=== PATIENT | female | born 1955 | race Caucasian/White ===

== ENCOUNTER 2017-05-14 15:57 | Emergency (ER) | payer OTHER ==
[2017-05-14 16:09] VITALS: BMI 29.8
[2017-05-14] MEDS ORDERED: LIDOCAINE HCL 1%, 10 MG/ML (20ML VIAL) ONE (16:34)
--- NOTE | 2017-05-14 16:35 | PDOC ---
Attending Attestation - Resident Resident Name: FalconMeggan - ED Attending Attestation I have performed the following: I have examined & evaluated the patient, The case was reviewed & discussed with the resident, I agree w/resident's findings & plan, Exceptions are as noted - HPI HPI: 05/14/17 16:45 61yo female with L thumb laceration from cutting avacado - bleeding controlled. Dr. Lozoya spoke with Dr. Cordero from plastics to suture laceration. Dr. Cordero at the bedside. No blood thinners. Tetanus not utd. - Physicial Exam PE: 05/14/17 16:45 L thumb linear 1.5cm laceation - no active bleeding. - Medical Decision Making 05/14/17 16:29 I, Dr. Sowmya Swan, DO, attest that this document has been prepared under my direction and personally reviewed by me in its entirety. I further attest, that it accurately reflects all work, treatment, procedures and medical decision -making performed by me. 05/14/17 16:46 a/p: L finger laceration -sutured by Dr. Cordero -tetanus -follow up with DR. Cordero in 1 week for wound check
[2017-05-14] MEDS ORDERED: LIDOCAINE HCL 1%, 10 MG/ML (50 mL VIAL) SQ ONE (16:36)
[2017-05-14] MEDS ORDERED: DIPHTH,PERTUSS(ACELL),TET 0.5 ML DISP.SYRIN IM ONE (16:36)
--- NOTE | 2017-05-14 16:48 | PDOC ---
History of Present Illness - General Chief Complaint: Laceration Stated Complaint: LACERATION Time Seen by Provider: 05/14/17 16:21 History Source: Patient, Spouse Exam Limitations: No Limitations - History of Present Illness Initial Comments: This is a 61 yo [id number] female who presents about one hour s/p cutting her left thumb. She states that the cut the thumb with a knife while trying to slice an avocado. The wound bled a small amount on scene and her (who is a physician) put her thumb in a dressing. She is able to move the thumb, and denies any numbness, tingling, or weakness. She states that she is not up to date on her tetanus vaccination. She denies any other injuries as a result of this incident. Past History - Past Medical History Allergies/Adverse Reactions: Allergies Allergy/AdvReac Type Severity Reaction Status Date / Time No Known Allergies Allergy Verified 05/14/17 16:09 Home Medications: Ambulatory Orders Atorvastatin Ca [Lipitor] 10 mg PO HS 05/14/17 Levothyroxine [Synthroid -] 50 mcg PO DAILY 05/14/17 - Suicide/Smoking/Psychosocial Hx Smoking History: Never smoked Have you smoked in the past 12 months: No Information on smoking cessation initiated: No Hx Alcohol Use: No Drug/Substance Use Hx: No Substance Use Type: None Review of Systems - Review of Systems Constitutional: No: Chills, Fever, Unexplained wgt Loss HEENTM: No: Nose Congestion, Throat Pain Respiratory: No: Cough, Shortness of Breath Cardiac (ROS): No: Chest Pain, Palpitations ABD/GI: No: Constipated, Diarrhea, Nausea, Vomiting : No: Burning, Dysuria Musculoskeletal: No: Back Pain, Neck Pain Integumentary: Yes: Other (left thumb laceration). No: Bruising, Rash Neurological: No: Headache, Numbness, Tingling, Weakness, Dizziness Endocrine: No: Unexplained Weight Gain, Unexplained Weight Loss *Physical Exam - Vital Signs Last Vital Signs Temp Pulse Resp BP Pulse Ox 97.6 F 81 16 125/73 100 05/14/17 16:03 05/14/17 16:03 05/14/17 16:03 05/14/17 16:03 05/14/17 16:03 - Physical Exam General Appearance: Yes: Nourished, Appropriately Dressed, Other (pleasant adult female sitting in chair in exam room, expresses concern over her thumb and over suture repair of the wound). No: Apparent Distress HEENT: positive: EOMI, Normal Voice, Hearing Grossly Normal. negative: Scleral Icterus (R), Scleral Icterus (L), Nasal Congestion Neck: positive: Trachea midline, Supple. negative: Tender, Rigid Respiratory/Chest: negative: Respiratory Distress, Accessory Muscle Use, Labored Respiration Cardiovascular: positive: Regular Rhythm, Regular Rate. negative: Murmur Comments:: radial pulses intact and equal Musculoskeletal: positive: Normal Inspection. negative: Decreased Range of Motion Extremity: positive: Normal Capillary Refill, Normal Range of Motion. negative : Cyanosis Integumentary: positive: Normal Color, Dry, Warm, Other (left thumb laceration as noted ). negative: Erythema, Rash, Bruising Neurologic: positive: computer repairer II-XII NML intact, Fully Oriented, Alert, Normal Mood/ Affect, Normal Response, Motor Strength 5/5 *DC/Admit/Observation/Transfer Diagnosis at time of Disposition: Thumb laceration Qualifiers: Encounter type: initial encounter Damage to nail status: without damage Foreign body presence: without foreign body Laterality: left Qualified Code(s): S61.012A - Laceration without foreign body of left thumb without damage to nail , initial encounter - Discharge Dispostion Disposition: HOME Condition at time of disposition: Stable Admit: No - Patient Instructions Printed Discharge Instructions: DI for Laceration Repair, DI for Suture Removal Additional Instructions: You were seen in the emergency room for a thumb laceration. Your nerves and blood vessels are intact and your laceration was sutured closed. Please keep the wound clean, use bacitracin ointment, and make an appointment with Dr. Cordero for 10 days from now to have the sutures removed. Please return to the emergency room for any new or worsening symptoms.
[2017-05-14 17:14] VITALS: BP 140/95; PULSE 80; TEMP 97.9
--- NOTE | 2017-05-15 07:18 | OP ---
DATE OF OPERATION: REQUESTING PHYSICIAN: Dallas Lozoya MD REASON FOR CONSULTATION: Deep laceration left thumb. PREOPERATIVE DIAGNOSIS: Deep laceration left thumb. POSTOPERATIVE DIAGNOSIS: Deep laceration left thumb. PROCEDURE: Complex repair 2 cm on the radial aspect. DESCRIPTION OF PROCEDURE: The patient was in a sitting position at this time. Wound on left thumb radial artery 2 cm was injected with 1% lidocaine plain. Then 3 mL was used. Skin was prepped with Betadine. The wound was irrigated with normal saline solution using a 10-mL syringe and a 19-gauge needle. Then 30-40 mL of normal saline was used to wash out any organic particles. None were found. At this time, wound bled well. Using very fine sutures, 6-0 Prolene epidermis and dermis were approximated. Repair was carried out. Active bleeding was noted. There is an injury to the digital artery. Digital nerve is not affected. Interrupted sutures with 6-0 Prolene was done followed by a dressing consisting of Xeroform, bacitracin, and a wraparound. The patient was given oral and written instructions. Elevation of the hand. Avoid any active work especially bending of the thumb. Pain medication. Follow up for suture removal in 10 days. She tolerated the procedure well and was sent home in a satisfactory condition. JASSI ADRIAN M.D. [id number]
== END 2017-05-14 17:14 | disposition home or self-care (01) ==
LOC: JER 15:57
PROC: 0HQGXZZ Repair Left Hand Skin, External Approach (ICD-10-PCS; principal; 2017-05-14)
PROC: 3E0234Z Introduction of Serum, Toxoid and Vaccine into Muscle, Percutaneous Approach (ICD-10-PCS; 2017-05-14)
DX: S61.012A Laceration without foreign body of left thumb without damage to nail, initial encounter (principal)
CPT/HCPCS: 99282-25